=== PATIENT | female | born 1990 | race American Indian/Alaskan Native ===

== ENCOUNTER 2020-10-26 09:12 | Inpatient (IN) | payer OTHER ==
[2020-10-26] MEDS ORDERED: LACTATED RINGERS 1,000 ML ONE (10:00)
[2020-10-26] MEDS ORDERED: OXYTOCIN DRIP 30 UNITS/500 ML BAG IV SCH ×3 (10:00→16:00)
[2020-10-26 10:26] LABS: Hematocrit 31.9 % (30.3-42.9); Hemoglobin 10.5 gm/dl (10.1-14.3); Mean Corpuscular HGB Conc 33 % (30-34); Mean Corpuscular Volume 82 fl (79-97); Platelet Count 222 K/mm3 (140-440); Red Blood Count 3.89 M/mm3 (3.65-5.03); Red Cell Distribution Width 14.9 % (13.2-15.2)
[2020-10-26] MEDS ORDERED: ePHEDrine SULFATE 50 MG/1 ML INJ IV PRN (10:30)
[2020-10-26] MEDS ORDERED: ONDANSETRON 4 MG/2 ML INJ IV PRN ×2 (10:30→14:23)
[2020-10-26] MEDS ORDERED: LIDOCAINE (2%) 20 MG/1 ML VIAL 20 ML MDV INFILTRATI SCH (10:30)
[2020-10-26] MEDS ORDERED: TERBUTALINE 1 MG/1 ML INJ SUB-Q PRN (10:30)
[2020-10-26] MEDS ORDERED: NalbUPHINE 10 MG/1 ML INJ IV PRN (10:30)
[2020-10-26] MEDS ORDERED: NALOXONE 0.4 MG/1 ML INJ IV PRN ×2 (10:30→14:23)
[2020-10-26] MEDS ORDERED: PROMETHAZINE 25 MG TAB PO PRN (10:30)
--- NOTE | 2020-10-26 10:33 | Anesthesia Consultation ---
Anesthesia Consult and Med Hx Date of service: 10/26/20 - Airway Anesthetic Teeth Evaluation: Good ROM Head & Neck: Adequate Mental/Hyoid Distance: Adequate Mallampati Class: Class II Intubation Access Assessment: Probably Good - Pulmonary Exam CTA: Yes - Cardiac Exam Cardiac Exam: RRR - Pre-Operative Health Status ASA Pre-Surgery Classification: ASA2 Proposed Anesthetic Plan: Spinal
--- NOTE | 2020-10-26 10:33 | Anesthesia Day of Surgery ---
Anesthesia Day of Surgery - Day of Surgery Patient Examined: Yes Patient H&P Reviewed: Yes Patient is NPO: Yes
--- NOTE | 2020-10-26 10:44 | History and Physical Report ---
History of Present Illness Date of examination: 10/26/20 Date of admission: 10/26/20 09:12 Chief complaint: Here for scheduled repeat section History of present illness: at 39.2wks by LMP c/w U/Sound. Here for repeat section. pt admits to movement. Pt denies LOF, vag bleed or feeling ctx. pt denies headache. 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; rubella non-immune in records; asymptomatic anemia) Past Surgical History: section (x1) Family/Genetic History: none Social history: no significant social history - Obstetrical History Expected Date of Delivery: 10/31/20 Actual Gestation: 39 Week(s) 2 Day(s) : 2 Para: 1 (c/section done) Number of Living Children: 1 Medications and Allergies Allergies Allergy/AdvReac Type Severity Reaction Status Date / Time metronidazole [From Flagyl] AdvReac Rash Verified 10/26/20 09:51 Active Meds: Active Medications Ephedrine Sulfate (Ephedrine Sulfate 50 Mg/1 Ml Inj) 10 mg IV Q2M PRN PRN Reason: Hypotension Oxytocin/Sodium Chloride (Pitocin/Ns 30 Unit/500ml) 30 units in 500 mls @ 2 mls/hr IV TITR RUBENS; Protocol Lactated Ringer's (Lactated Ringers) 1,000 mls @ 125 mls/hr IV DIRECT RUBENS Oxytocin/Sodium Chloride (Pitocin/Ns 30 Unit/500ml) 30 units in 500 mls @ 40 mls/hr IV TITR RUBENS; Protocol Cefazolin Sodium 2 gm/ Sodium (Chloride) 100 mls @ 200 mls/hr IV ONCE ONE; Protocol Stop: 10/26/20 11:29 Lidocaine (Lidocaine (2%) 20 Mg/1 Ml Vial 20 Ml Mdv) 20 ml INFILTRATI ONCE RUBENS Stop: 10/27/20 10:29 Mineral Oil (Mineral Oil 30 Ml Oral Liqd) 30 ml PO QHS PRN PRN Reason: Constipation Nalbuphine HCl (Nalbuphine 10 Mg/1 Ml Inj) 10 mg IV Q2H PRN PRN Reason: Pain, Moderate (4-6) Naloxone HCl (Naloxone 0.4 Mg/1 Ml Inj) 0.1 mg IV Q2MIN PRN PRN Reason: Res Rate </= 8 or 02 SAT < 92% Ondansetron HCl (Ondansetron 4 Mg/2 Ml Inj) 4 mg IV Q8H PRN PRN Reason: Nausea And Vomiting Promethazine HCl (Promethazine 25 Mg Tab) 25 mg PO Q6H PRN PRN Reason: Nausea And Vomiting Terbutaline Sulfate (Terbutaline 1 Mg/1 Ml Inj) 0.25 mg SUB-Q ONCE PRN PRN Reason: Hyperstimulation/Hypertonicity Review of Systems All systems: negative (none) - Vital Signs Vital signs: Vital Signs Temp Pulse Resp BP 98.6 F 96 H 15 111/10/26/20 10:35 10/26/20 10:35 10/26/20 10:35 10/26/20 10:35 Temp Pulse Resp BP Pulse Ox 98.6 F 96 H 15 10/26/20 10:35 10/26/20 10:36 10/26/20 10:35 10/26/20 10:36 - Physical Exam Breasts: Positive: deferred Cardiovascular: Regular rate Lungs: Positive: Normal air movement Abdomen: Positive: soft (and previous c/section keloid scar seen) Genitourinary (Female): Positive: normal external genitalia Vulva: both: normal (no lesions) Vagina: Positive: normal moisture Uterus: Positive: enlarged (non-tender, gravid) Extremities: Positive: normal - Obstetrical FHR: category 1 Uterine Contraction Monitor Mode: External Cervical Dilatation: 1 Cervical Effacement Percentage: 0 station: -2 Uterine Contraction Pattern: Irregular Uterine Contraction Intensity: Mild Results Result Diagrams: 10/26/20 09:50 Abnormal lab results 10/26/20 Range/Units 09:50 MCH 27 L (28-32) pg All other labs normal. Assessment and Plan IUP at at 39.2wks, previous section x1, not in labor and for repeat section; H/O HSVII without any lesions; H/O Enlarged thyroid stable and benign heart murmur 1. Admit for repeat section and removal of keloid scar if pt desires and consents obtained 2. NICU and Anesthesiologist notified 3. Expect
[2020-10-26] MEDS ORDERED: MINERAL OIL 30 ML ORAL LIQD PO PRN (11:00)
[2020-10-26] MEDS ORDERED: FAMOTIDINE 20 MG/2 ML INJ IV ONE (11:50)
[2020-10-26] MEDS ORDERED: METOCLOPRAMIDE 10 MG/2 ML INJ ONE (11:50)
[2020-10-26] MEDS ORDERED: dexAMETHasone 20 MG/5 ML VIAL ONE (11:53)
[2020-10-26] MEDS ORDERED: KETOROLAC 30 MG/1 ML INJ ONE (11:53)
[2020-10-26] MEDS ORDERED: BUPIVACAINE/PF (0.5%) 5 MG/1 ML 30 ML VIAL INFILTRATI ONE (11:53)
[2020-10-26] MEDS ORDERED: ONDANSETRON 4 MG/2 ML INJ ONE (11:53)
[2020-10-26] MEDS: LACTATED RINGERS 1,000 ML IV SCH ×2 (11:56→20:10)
[2020-10-26] MEDS ORDERED: METOCLOPRAMIDE 10 MG/2 ML INJ IV NR (12:00)
[2020-10-26] MEDS ORDERED: ceFAZolin/Water 2 GM/20 ML 2 GM/20 ML SYRINGE IV NR (12:00)
[2020-10-26] MEDS ORDERED: ceFAZolin/STERILE WATER 2 GM/20 ML SYRINGE IV ONE (12:15)
[2020-10-26] MEDS ORDERED: ONDANSETRON 4 MG/2 ML INJ IV ONE (12:15)
[2020-10-26] MEDS ORDERED: PHENYLEPHRINE/NS 1,000 MCG/10 ML SYRINGE (OR USE) IV ONE (12:29)
[2020-10-26] MEDS ORDERED: BICITRA ORAL LIQD 30ML PO ONE (12:32)
[2020-10-26] MEDS ORDERED: KETOROLAC 30 MG/1 ML INJ IV ONE (13:30)
[2020-10-26] MEDS ORDERED: WITCH HAZEL/ GLYCERIN PAD TP PRN (14:23)
[2020-10-26] MEDS ORDERED: oxyCODONE /ACETAMINOPHEN 5-325MG TAB PO PRN (14:23)
[2020-10-26] MEDS ORDERED: LANOLIN/ZINC/DIMETHICONE (LANSINOH) 7 GM TP PRN (14:23)
--- NOTE | 2020-10-26 14:24 | Progress Note ---
Spinal Anesthesia Block - Spinal Anesthesia Block Start Time: 12:14 Stop Time: 12:16 Performed by:: JOHN NUÑEZ Procedure: Sitting, sterile chlorahexadine 0.5% prep/drape, 1% lidocaine skin local, 25G spinal needle + introduced at L3-4, + CSF, - Heme, [1.9 ml 0.5% bupivacaine + 10 mcg dexmedetomidine] injected, drape removed, patient positioned supine with left uterine displacement, and spinal level verified to be adequate prior to surgery.
--- NOTE | 2020-10-26 14:25 | Progress Note ---
Regional Anesthesia Block - Regional Anesthesia Block Start Time: 14:15 Stop Time: 14:20 Performed By:: JOHN NUÑEZ Procedure: U/S guided bilateral tap block performed for post-operative pain requested by Dr. Milton. H&P & labs reviewed. Procedure explained, questions answered, consent obtained. Patient in the supine position with ekg, blood pressure cuff and pulse ox on and working in PACU. Timeout performed immediately before start of procedure. Probe placed in the mid-axillary line and the external oblique, internal oblique, and transverse abdominus muscles identified. Skin was cleansed with chlorahexadine 0.5% and allowed to dry. A 4" 20 G Fields echogenic needle was advanced in plane until the tip was in the fascial plane between the internal oblique and the transverse abdominus. After negative aspiration 35 ml/side of [30 ml 0.5% Bupivacaine], [50 mcg dexmedetomidine], [10 mg dexamethasone], and [40 ml sterile saline] was injected in 5 ml increments with negative aspiration in between. Patient tolerated procedure well.
--- NOTE | 2020-10-26 14:47 | Procedure Note ---
OB Delivery Note - Delivery Date of Delivery: 10/26/20 Surgeon: EMPERATRIZ BORDEN Estimated blood loss: 500cc - Section Preop diagnosis: repeat Postop diagnosis: same section procedure: repeat low transverse Disposition: floor Complications: none Narrative: Date: 10/26/20 Surgeon: Emperatriz Borden MD Preop Dx: IUP at 39.2wks, previous section x1 with keloid scar and pt desires removal of scar when she was in the operating room; Cervix not dilated Postop Dx: Same and paper thin lower uterine segment Procedure : Repeat low transverse section and excision of previous keloid scar Anesthesia: Spinal Intake: 1400cc Output: 25cc clear urine EBL: 500cc After the risks, benefits and alternatives of procedure discussed, patient signed consents and was taken to the operating room. Pt was given spinal anesthesia. After same was adequate, patient was prepped and draped in the usual sterile fashion. Suazo catheter in place and draining clear urine very scant less than 10cc. Pt was given prophylactic antibiotic per protocol and time out was done Pfannenstiel skin incision was made and taken sharply to the fascia and the incision extended using electrocautery. Superior edge of the fascia was grasped with [place] clamps and the rectus muscle using blunt dissection and also using electrocautery. Lower portion of the fascia also sharply. Rectus muscle in the midline and Peritoneal cavity entered sharply and extended with good visualization of the bladder. Gareth retractor placed. The bladder flap attempt made to open however very thin uterine segment that extends near bladder hence same not done. Lower uterine segment then entered transversely and amniotic sac entered using allys clamps. Uterine incision extended using bandage scissors. delivered, bulb suctioned, cord clamped and baby handed to waiting pediatricians. Placenta then delivered completely and uterine cavity cleared of all clots and debri. The uterus was not exteriorized and closed in 2 layers using 0-monocryl suture in a running locked fashion and then an additional layer of eight suture done. Excellent hemostasis noted. The gutters were cleared of clots and debri and anterior peritoneum with rectus muscle reapproximated using 0-monocryl suture. Rectus fascia closed with 0-vicryl suture and subcutaneous tissue copiously irrigated with normal saline. Excellent hemostasis remains. Attention turned to keloid scar and same excised sharply using the scalpel in an eliptical fashion then subcutaneous tissue irrigated with normal saline again and reapproximated using 3-0 vicryl in a continuous fashion. The skin was closed w ith 4-0 monocryl] suture and steristrips placed with pressure dressing. Sponge, lap, instrument and needle counts x2 were normal. Patient tolerated the procedure well and was taken to recovery room stable. Findings: Viable male infant, APGARS 8/9 and weight 3509g. Normal uterus, tubes and ovaries. - Infant A at 1 minute: 8 at 5 minutes: 9 (Male , wt 3509g)
[2020-10-26] MEDS ORDERED: ceFAZolin/NS 1 GM/50 ML 1 GM/50 ML BAG IV SCH (15:00)
[2020-10-26 15:41] LABS: Alanine Aminotransferase 12 units/L (7-56); Albumin 3.1 g/dL (3.9-5); Blood Urea Nitrogen 7 mg/dL (7-17); Calcium 7.8 mg/dL (8.4-10.2); Hemolysis Index 0
[2020-10-26 15:50] LABS: BUN/Creatinine Ratio 18
[2020-10-26] MEDS: KETOROLAC 30 MG/1 ML INJ IV PRN (18:39)
[2020-10-26] MEDS: ceFAZolin/NS 1 GM/50 ML 1 GM/50 ML BAG IV SCH (20:05)
[2020-10-26] MEDS ORDERED: D5W/LACTATED RINGERS 1,000 ML IV SCH (21:00)
[2020-10-27] MEDS: KETOROLAC 30 MG/1 ML INJ IV PRN (00:34)
[2020-10-27] MEDS: oxyCODONE /ACETAMINOPHEN 5-325MG TAB PO PRN ×4 (03:31→20:32)
[2020-10-27] MEDS: ceFAZolin/NS 1 GM/50 ML 1 GM/50 ML BAG IV SCH (03:32)
[2020-10-27] MEDS: LACTATED RINGERS 1,000 ML IV SCH (05:31)
[2020-10-27 08:29] LABS: Basophils % (Auto) 0.2 % (0.0-1.8); Eosinophils % (Auto) 0.1 % (0.0-4.3); Hematocrit 25.4 % (30.3-42.9); Hemoglobin 8.4 gm/dl (10.1-14.3); Lymphocytes # (Auto) 1.9 K/mm3 (1.2-5.4); Lymphocytes % (Auto) 13.9 % (13.4-35.0); Mean Corpuscular HGB Conc 33 % (30-34); Mean Corpuscular Volume 83 fl (79-97); Monocytes # (Auto) 1.1 K/mm3 (0.0-0.8); Monocytes % (Auto) 8.5 % (0.0-7.3); Platelet Count 190 K/mm3 (140-440); Red Blood Count 3.07 M/mm3 (3.65-5.03); Red Cell Distribution Width 15.3 % (13.2-15.2)
[2020-10-27] MEDS: SIMETHICONE 80 MG CHEW TAB PO PRN (10:33)
[2020-10-27] MEDS: FERROUS SULFATE 325 MG TAB PO SCH (10:33)
[2020-10-27] MEDS: PRENATAL VIT27-FE FUMARATE-FOLIC ACID VIT TAB PO SCH (10:34)
--- NOTE | 2020-10-27 11:48 | Progress Note ---
Assessment and Plan - Patient Problems (1) Status post repeat low transverse section Current Visit: Yes Status: Acute Plan to address problem: Continue routine PP orders Keep dressing clean and dry, remove on POD#2 Anticipate d/c home in 24-48hr if stable (2) Anemia Current Visit: Yes Status: Acute Qualifiers: Anemia type: other cause Other causes of anemia: acute posthemorrhagic Qualified Code(s): D62 - Acute posthemorrhagic anemia Plan to address problem: Asymptomatic Increase iron rich foods into diet Subjective - Subjective Date of service: 10/27/20 Principal diagnosis: S/P repeat C/S; POD #1 Interval history: See admission H & P; OB operative summary and PP progress notes Patient reports: appetite normal, voiding normally, pain well controlled (with medications), flatus, ambulating normally, no bowel movement : doing well, nursing well Objective - Vital Signs Latest vital signs: Vital Signs Temp Pulse Resp BP BP Pulse Ox 10/27/20 08:17 97.9 F 72 18 98/51 98 10/27/20 05:30 70 97/50 10/27/20 05:06 98.2 F 75 18 88/52 96 10/27/20 03:31 20 10/27/20 03:18 74 105/54 10/27/20 00:39 97.7 F 66 19 84/45 97 10/27/20 00:34 20 10/26/20 20:48 97.8 F 62 18 90/50 98 10/26/20 16:50 97.3 F L 75 16 96/62 100 10/26/20 16:01 97.6 F 61 15 93/49 100 10/26/20 15:35 97.6 F 65 15 106/68 99 10/26/20 15:15 97.6 F 60 12 97/46 99 10/26/20 15:00 97.6 F 60 14 102/61 99 10/26/20 14:45 97.6 F 57 L 14 90/61 99 10/26/20 14:30 97.6 F 63 14 89/50 99 10/26/20 14:25 97.6 F 60 14 93/48 99 10/26/20 14:20 97.6 F 59 L 14 107/61 99 10/26/20 14:15 97.6 F 72 14 88/39 99 10/26/20 14:08 97.6 F 76 14 96/49 99 Intake and Output 10/26/20 10/27/20 10/27/20 23:59 07:59 15:59 Intake Total 1170 1120 240 Output Total 500 950 Balance 670 170 240 Intake: IV 1050 1000 ANCEF/NS 1 GM/50 ML 1 gm 50 In 50 ml @ 100 mls/hr IV Q8H RUBENS Rx#:[id number] Lactated Ringers 1,000 ml 1000 1000 @ 125 mls/hr IV DIRECT RUBENS Rx#:[id number] Oral 120 120 240 Output: Urine 500 950 Indwelling Catheter 300 950 Uretheral (Suazo) 100 Other: Total, Intake Amount 120 120 240 Total, Output Amount 200 800 - Exam Breasts: Present: normal Cardiovascular: Present: Regular rate Lungs: Present: Normal air movement Abdomen: Present: soft, tenderness Uterus: Present: firm, fundal height below umbilicus (U-2) Extremities: Present: normal Deep Tendon Reflex Grade: Normal +2 Incision: Present: dressed (no shadow drainage or bleeding noted; abdominal binder in place) - Labs Labs: Abnormal lab results 10/26/20 10/27/20 Range/Units 15:09 07:04 WBC 13.4 H (4.5-11.0) K/mm3 RBC 3.07 L (3.65-5.03) M/mm3 Hgb 8.4 L (10.1-14.3) gm/dl Hct 25.4 L D (30.3-42.9) % MCH 27 L (28-32) pg RDW 15.3 H (13.2-15.2) % [place] % (Auto) 8.5 H (0.0-7.3) % [place] # (Auto) 1.1 H (0.0-0.8) K/mm3 Seg Neutrophils % 77.3 H (40.0-70.0) % Seg Neutrophils # 10.3 H (1.8-7.7) K/mm3 Sodium 135 L (137-145) mmol/L Carbon Dioxide 20 L (22-30) mmol/L Creatinine 0.4 L (0.6-1.2) mg/dL Calcium 7.8 L (8.4-10.2) mg/dL Alkaline Phosphatase 132 H (35-129) units/L Total Protein 5.2 L (6.3-8.2) g/dL Albumin 3.1 L (3.9-5) g/dL
[2020-10-27] MEDS: IBUPROFEN 800 MG TAB PO PRN ×2 (12:25→18:28)
[2020-10-27] MEDS ORDERED: FAMOTIDINE 20 MG/2 ML INJ IV ONE (12:36)
--- NOTE | 2020-10-27 17:15 | Post Anesthesia Evaluation ---
- Post Anesthesia Evaluation Patient Participated: Yes Airway Patent: Yes Stable Respiratory Function: Yes Nausea/Vomiting: No Temp > 96.8F: Yes Pain Manageable: Yes Adequeate Hydration: Yes Anesthesia Complications: No Block Receding Appropriately: Yes
[2020-10-27] MEDS: MAGNESIUM HYDROXIDE (MOM) ORAL LIQD UDC PO PRN (20:33)
[2020-10-28] MEDS: oxyCODONE /ACETAMINOPHEN 5-325MG TAB PO PRN ×3 (04:29→17:44)
[2020-10-28] MEDS ORDERED: DIPHtheria,PERTUSSIS(ACELL),TETANUS VACCINE/PF 0.5 ML VIAL IM ONE (06:00)
[2020-10-28] MEDS ORDERED: MEASLES, MUMPS & RUBELLA 12,500 UNIT/0.5 ML VACCINE SUB-Q ONE (06:00)
[2020-10-28] MEDS: IBUPROFEN 800 MG TAB PO PRN ×3 (08:42→23:50)
[2020-10-28] MEDS: FERROUS SULFATE 325 MG TAB PO SCH (10:08)
[2020-10-28] MEDS: PRENATAL VIT27-FE FUMARATE-FOLIC ACID VIT TAB PO SCH (10:09)
--- NOTE | 2020-10-28 11:32 | Progress Note ---
Assessment and Plan A: Postop Day 2 Asymptomatic Anemia P: Follow routine postop orders Continue Ferrous Sulfate 325mg PO q day Encouraged increased ambulation Discharge home tomorrow per patient request Subjective - Subjective Date of service: 10/28/20 Principal diagnosis: S/P repeat C/S; POD #2 Patient reports: appetite normal, voiding normally, pain well controlled, flatus, ambulating normally, other (Denies fatigue, dizziness or shortness of breath.), no bowel movement [place]: doing well, nursing well Objective - Vital Signs Latest vital signs: Vital Signs Temp Pulse Resp BP Pulse Ox 10/28/20 10:09 18 10/28/20 08:42 18 10/28/20 08:21 98.1 F 78 18 105/54 97 10/28/20 05:29 18 10/28/20 04:29 18 10/28/20 01:29 98.5 F 84 20 104/48 95 10/27/20 21:32 18 10/27/20 20:32 18 10/27/20 18:28 18 10/27/20 16:01 18 10/27/20 15:35 97.9 F 89 18 101/45 97 10/27/20 12:25 18 Intake and Output 10/27/20 10/28/20 10/28/20 22:59 06:59 14:59 Intake Total 720 360 120 Output Total 400 Balance 320 360 120 Intake: Oral 480 120 120 Intake, Free Water 240 240 Output: Urine 400 Void 400 Other: Total, Intake Amount 120 120 120 Total, Output Amount 400 # Voids Void 1 1 1 - Exam Breasts: Present: normal Cardiovascular: Present: Regular rate, Normal S1, Normal S2 Lungs: Present: Clear to auscultation, Normal air movement Abdomen: Present: normal appearance, soft, normal bowel sounds Uterus: Present: normal, firm, fundal height below umbilicus Extremities: Present: normal Incision: Present: normal, dry, intact
--- NOTE | 2020-10-28 11:34 | Discharge Summary ---
Providers - Providers Date of Admission: 10/26/20 09:12 Date of discharge: 10/29/20 Attending physician: ALEXSANDRA BORDEN Primary care physician: RODERICK GARCIA MD Hospitalization Reason for admission: section Delivery: Procedure: repeat low transverse Incision: normal, dry, intact Other procedures: none complications: none Discharge diagnosis: IUP at term delivered baby: male Condition at discharge: Good Disposition: DC-01 TO HOME OR SELFCARE Plan - Provider Discharge Summary Activity: routine, no sex for 6 weeks, no heavy lifting 4 weeks, no strenuous exercise Diet: routine Instructions: routine Additional instructions: [] Smoking cessation referral if applicable(refer to patient education folder for contact #) [] Refer to [facility]'s [facility] Booklet Call your doctor immediately for: * Fever > 100.5 * Heavy vaginal bleeding ( >1 pad per hour) * Severe persistent headache * Shortness of breath * Reddened, hot, painful area to leg or breast * Drainage or odor from incision. * Keep incision clean and dry at all times and follow doctor's instructions regarding bathing/showering - Follow up plan Follow up: RODERICK GARCIA MD [Primary Care Provider] -
[2020-10-28] MEDS: MAGNESIUM HYDROXIDE (MOM) ORAL LIQD UDC PO PRN (19:47)
[2020-10-28] MEDS: SIMETHICONE 80 MG CHEW TAB PO PRN (19:47)
[2020-10-29] MEDS: oxyCODONE /ACETAMINOPHEN 5-325MG TAB PO PRN ×2 (02:24→12:19)
[2020-10-29] MEDS: IBUPROFEN 800 MG TAB PO PRN (05:26)
[2020-10-29] MEDS: PRENATAL VIT27-FE FUMARATE-FOLIC ACID VIT TAB PO SCH (09:49)
[2020-10-29] MEDS: FERROUS SULFATE 325 MG TAB PO SCH (09:49)
[2020-10-29 13:00] VITALS: BP 99/63
== END 2020-10-29 15:30 | disposition home or self-care (01) | DRG 765 ==
LOC: APU 09:12 → OB 17:51
PROVIDERS: ADMIT Obstetrics & Gynecology; ATTEND Obstetrics & Gynecology
PROC: 10D00Z1 Extraction of Products of Conception, Low, Open Approach (ICD-10-PCS; principal; 2020-10-26)
PROC: 3E0R3BZ Introduction of Anesthetic Agent into Spinal Canal, Percutaneous Approach (ICD-10-PCS; 2020-10-26)
PROC: 3E0T3BZ Introduction of Anesthetic Agent into Peripheral Nerves and Plexi, Percutaneous Approach (ICD-10-PCS; 2020-10-26)
PROC: B04BZZZ Ultrasonography of Spinal Cord (ICD-10-PCS; 2020-10-26)
DX: O34.211 Maternal care for low transverse scar from previous cesarean delivery (principal); D62 Acute posthemorrhagic anemia; Z3A.39 39 weeks gestation of pregnancy; Z37.0 Single live birth; Z20.822 Contact with and (suspected) exposure to COVID-19
CPT/HCPCS: 36415; 80053; 85025; 85027; 86850; 86900; 86901; 90471; 90472; 90707; 90715; G0378; A6250; J0690; J1100; J1885; J2370; J2405; J2765; J3490; J7120; U0003